=== PATIENT | female | born 1980 | race Caucasian/White ===

== ENCOUNTER 2023-03-13 13:45 | Outpatient (CLI) | payer OTHER ==
--- NOTE | 2023-03-13 14:29 | Sleep Patient Instructions ---
Sleep Center Visit Summary - Patient Visit Information Reason for Visit: Initial consultation - Patient Instructions Additional Instructions: You will continue with CPAP therapy with pressure set at 5-15 cmH2O. A supply prescription will be updated with your DME. We encourage you to continue to try to lose weight. Please follow up with the sleep care office in 1 year. - Clinic Information Contact: [facility] [address] [place] [address] [email or web address] T: [phone]
--- NOTE | 2023-03-13 14:33 | SLEEP CARE CONSULTATION ---
Information from patient questionnaire entered by Jewels Reed. I have reviewed and concur with the information entered by Jewels Reed. This document represents the service I personally performed and the decisions made by me, Mellisa Moreland ARNP. History of Present Illness Service Date and Time: 03/13/2023 1345 Reason for Visit: New patient, sleep apnea on CPAP therapy Chief Complaint: reports: Other (CPAP SCRIPT RENEWAL) Date of Onset: MOST OF MY LIFE Usual bedtime: 10PM Time it takes to fall asleep: A FEW MIN Snores at night: Yes Observed to quit breathing while asleep: Yes Sleeps alone due to snoring: No Number of times waking at night: 2-3 WITH CPAP SEVERAL WITHOUT Reasons for waking at night: reports: Snoring, Pain. denies: Choking, Gasping for air Toss, Turn, or Twitch while sleeping: Yes Recalls having dreams: Yes Usually gets out of bed at: 6-7AM Feels refreshed in the morning: No Morning headache: Yes Sleepy or fatigued during the day: Yes Ever fallen asleep while driving: No Takes day naps: Yes Dreams during day naps: No Prior sleep studies: Yes Additional HPI information: PENNY GARRIDO was previously diagnosed to have mild, AHI 5.7, obstructive sleep apnea-hypopnea syndrome as seen in sleep study dated 04/25/2016 done through [facility] in [place] and comes in today to establish care for CPAP therapy. - Parasomnia Symptoms Ever been unable to move upon waking from sleep: No Walks in sleep: No Talks in sleep: Yes Ever acted out dreams in sleep: No Bothered by creepy, crawly, restless sensations in legs: No Problems with memory or concentration: Yes CPAP Compliance Data - Data Reviewed with Patient Average duration of nightly device use: 7 hours 40 minutes Compliance rate %: 88.9 (80/90 days used) Current pressure setting (cmH2O): 5-15 Average residual AHI: 1.6 Central apnea: 0 Obstructive apnea: 0.4 Average large leak: 0 secs Compliance data discussion: She has a Dreamstation 2. She has been getting her supplies from [facility]. She needs her prescription updated. She is using a nasal mask, over the nose. Subjective Missed days of use due to: reports: travel (unable to plug in [place]) Patient concerns: reports: air blowing in eyes (occasional, just needs adjusment of mask). denies: aerophagia, mask discomfort, mask leak noise, condensation in mask/hose, nasal congestion, dry mouth, nose, throat, epistaxis Observed to snore while using device: No Current pressure setting perceived as: comfortable On therapy, patient: reports: sleeping better, awakening more refreshed, being more awake and alert during the day, more rested overall. denies: drowsiness while driving Initial [place] Sleepiness Scale score: 8 (03/13/23) Past Medical History Past Medical History: reports: Depression, Mood disorder, Attention deficit Social History The patient's occupation is a SE. Patient is and lives in . Have you smoked in the past 12 months: No Years of smokin Quit date: 2011 Alcohol use: No Caffeine use: No Family History Family history of sleep disordered breathing: Yes Family Hx Sleep Apnea: Mother: Sleep apnea - Treated, Father: Snoring, Sibling: Snoring, Grandparent: Snoring Allergies and Home Medications Known drug allergies: Yes (SULFA) Drug allergies reviewed: Yes Home medication list reviewed: Yes Allergy and home medication list: Home Medications Medication Instructions Recorded Confirmed Last Taken Type Cholecalciferol (Vitamin D3) See Rx Instructions .ROUTE .COMPLEX 03/13/23 03/13/23 Unknown History [Vitamin D3] Glucosamine HCl See Rx Instructions .ROUTE .COMPLEX 03/13/23 03/13/23 Unknown History Magnesium See Rx Instructions .ROUTE .COMPLEX 03/13/23 03/13/23 Unknown History Multivitamin See Rx Instructions .ROUTE .COMPLEX 03/13/23 03/13/23 Unknown History Phytonadione (Vit K1) [Vitamin K] See Rx Instructions .ROUTE .COMPLEX 03/13/23 03/13/23 Unknown History Turmeric See Rx Instructions .ROUTE .COMPLEX 03/13/23 03/13/23 Unknown History Vitamin A See Rx Instructions .ROUTE .COMPLEX 03/13/23 03/13/23 Unknown History Review of Systems Weight gain over past 5 years: 50-60 Weight loss over past 5 years: 30 Cardiovascular: denies: high blood pressure Respiratory: reports: wheeze Neurological: reports: headaches Psychiatric: reports: Attention Deficit Hyperactivity, mood disorder Ear/Nose/Throat: denies: tonsillectomy Endocrine: reports: too hot or cold Musculoskeletal: reports: joint pain, neck pain, back pain, joint swelling, muscle pain or cramping, mobility problems Immunologic: reports: rash Physical Exam Vital signs obtained and entered by: JEWELS Carmichael MA Blood Pressure: 116/72 (LEFT ARM) Cuff size: regular Heart Rate: 66 O2 Saturation: 99 Height: 5 ft 6 in Weight: 257 lb 6.4 oz Body Mass Index: 41.5 BMI Classification: Morbidly Obese Neck circumference: 16 Heart: regular rate and rhythm Lungs: clear bilaterally Impression and Plan 1. Obstructive Sleep Apnea-Hypopnea Syndrome, mild, with good treatment compliance and good apnea control. On CPAP therapy, the patient has better sleep quality and is more rested overall. Patient has significant improvement of their sleep apnea and is satisfied with current CPAP therapy. Patient states she uses it all the time except when she was improvement unable to plug it in for about 9 days. Patient denies problems with oral dryness, nasal congestion, epistaxis, skin irritation or aerophagia. Patient's apnea severity and rationale for treatment to reduce apnea, improve sleep quality and reduce cardiovascular and cerebrovascular events was reviewed. I also reviewed the benefit of consistent device use of CPAP for depression, attention deficit and mood disorder. 2. Obesity, unspecified. Currently patients BMI is 41.5. Obesity increases the risk of apnea, CPAP pressure requirements and overall health risks especially cardiovascular and diabetes. Thus patient is advised to lose weight. * Continue auto CPAP pressure at 5-15 cmH2O * Update supply prescription * Notify me if snoring with mask or feeling that the pressure is too much or too little * Attempt to lose weight * Call this office if any problems using CPAP * Return for follow up in 12 months, or sooner if concerns arise Counseling Topics: Spare mask, Weight loss health impact Prescriptions: Device supplies Follow up with Sleep Care in: 1 year Visit Type: In Office Time Spent with Patient (minutes): 30 Provider Statement: I spent 100% of the Face to Face Visit with the patient with greater than 50% spent counseling the patient and coordination of care.
[2023-03-13 14:39] VITALS: BP 116/72; O2SAT 99
== END 2023-03-13 13:46 | disposition home or self-care (01) ==
LOC: SC 13:45
PROVIDERS: ATTEND Nurse Practitioner Family
DX: G47.33 Obstructive sleep apnea (adult) (pediatric) (principal); E66.01 Morbid (severe) obesity due to excess calories; Z68.41 Body mass index [BMI] 40.0-44.9, adult
CPT/HCPCS: 99203; 99212

== ENCOUNTER 2023-05-25 12:53 | Outpatient (CLI) | payer OTHER ==
--- NOTE | 2023-05-25 21:27 | MRI Report ---
Foot RT WO CLINICAL HISTORY: 42 years of age, Female, RIGHT FOOT PAIN, RIGHT ANKLE PAIN. COMPARISON: None Technique: Multisequence, multiplanar MRI of the right foot was performed without contrast. FINDINGS: Tendons: Flexor and extensor tendons are intact with normal course, caliber and signal. Muscles: Normal muscle bulk and signal intensity. Ligaments: Lisfranc and radial collateral ligaments are intact. Interosseous spaces: Moderate first intermetatarsal bursitis. Mild second and third intermetatarsal b ursitis. Plantar Fascia: Normal. Osseous and Cartilaginous: Normal bone marrow signal intensity. Cartilage is normal in appearance. Miscellaneous: IMPRESSION: Moderate first intermetatarsal bursitis. Mild second and third intermetatarsal bursitis. Reviewed by: Allison Carolina MD on 05/25/2023 9:25 PM PDT Approved by: Allison Carolina MD on 05/25/2023 9:25 PM PDT Station ID: [id number]
--- NOTE | 2023-05-25 21:40 | MRI Report ---
Ankle RT WO CLINICAL HISTORY: 42 years of age, Female, RIGHT FOOT PAIN, RIGHT ANKLE PAIN. COMPARISON: None Technique: Multisequence, multiplanar MRI of the right ankle was performed without contrast. IV CONTRAST: Not given FINDINGS: Tendons: Mild tenosynovitis of the posterior tibialis tendon. The flexor digitorum longus and the fle xor hallux longus tendon are unremarkable. The peroneal, and extensor tendons are unremarkable. Minim al tendinosis of the distal Achilles tendon. Small ossification within the distal Achilles tendon ins ertion, representing prior injury. No tear of the distal Achilles tendon. Small posterior calcaneal e nthesophyte with associated marrow edema. Small retrocalcaneal bursitis. Ligaments: The anterior and posterior tibiofibular ligaments are intact. Thickening of the anterior t alofibular ligament, representing prior sprain. The posterior talofibular ligament is intact.The calc aneofibular ligament is unremarkable. Prior sprain of the deep portion of deltoid ligament with assoc iated ossification. Sinus Tarsi: Normal signal without evidence of inflammatory change or fibrosis. Plantar fascia: Normal signal and morphology without evidence of inflammation or tear. Muscles: Visualized intrinsic foot musculature demonstrates normal signal and bulk. Bones and cartilage: There is diffuse, marked marrow edema of the calcaneus, without fracture line. N o osteochondral lesion in the talar dome.Metallic artifact about the distal fibula, likely representi ng prior postprocedural changes. Mild marrow edema in the medial malleolus, which may be degenerative versus reactive. Miscellaneous: Tarsal tunnel appears normal. Small tibiotalar effusion. No ganglion cyst. IMPRESSION: 1.Diffuse, marked marrow edema of the calcaneus with marrow edema of the posterior calcaneus enthesop hyte. Differential diagnosis includes, but not limited to, marrow contusion versus stress changes of the calcaneus, or posterior calcaneal enthesitis with reactive marrow edema of the calcaneus. 2.Prior sprain of the lateral and medial ankle ligament. 3.Mild degenerative versus reactive marrow edema of the medial malleolus. Reviewed by: Allison Carolina MD on 05/25/2023 9:39 PM PDT Approved by: Allison Carolina MD on 05/25/2023 9:39 PM PDT Station ID: [id number]
== END 2023-05-25 12:54 | disposition home or self-care (01) ==
LOC: DI 12:53
PROVIDERS: ATTEND Nurse Practitioner Family
DX: M77.51 Other enthesopathy of right foot and ankle (principal); R60.0 Localized edema